=== PATIENT | female | born 1945 | race Two or more races ===

== ENCOUNTER 2025-05-01 18:35 | Emergency (ER) | payer OTHER, MEDICAID, SELFPAY ==
[2025-05-01 19:27] VITALS: BP 104/63; PULSE 101; RESP 20; TEMP 37.4; O2SAT 96
--- NOTE | 2025-05-01 19:32 | XR_ITS ---
Examination: CT abdomen and pelvis without contrast. Coronal 3-D reconstructions. Sagittal 2-D reconstructions. Date and time of exam: May 01, 2025, 2033 hours INDICATIONS: Bilateral pelvic and flank pain beginning 4 days ago CTDI: vol (mGy): 6.52 DLP: (mGycm): 357 Technique: Axial images of the abdomen have been obtained, 3 mm slice thickness Intravenous contrast material has not been administered. Low dose protocols were performed. One or more of the following dose reduction techniques were used; automated exposure control, adjustment of the mA and/or KV according to patient size, use of iterative reconstruction technique. 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
--- NOTE | 2025-05-01 19:33 | PD.EDRME ---
Rapid Medical Screening Exam RME Arrival date/time: 05/01/25 18:35 This is a case of 79-year-old female with history of hyperlipidemia hypertension diabetes came in in the emergency room due to bilateral flank pain radiating to the abdomen with painful urination for 4 days with nausea vomiting persistence of the symptoms this patient decided to sought consult here in the emergency room Chief Complaint: Urogenital-Female Time Seen by Provider: 05/01/25 18:55 Vital signs: Vital Signs Temperature 99.4 F 05/01/25 19:27 Pulse Rate 101 H 05/01/25 19:27 Respiratory Rate 20 05/01/25 19:27 Blood Pressure 104/63 05/01/25 19:27 Pulse Oximetry (%) 96 05/01/25 19:27 Oxygen Delivery Method Room Air 05/01/25 19:27 Exam: Moderate tenderness both flank and abdomen no guarding no rebound no rigidity Clinical Impression: Bilateral flank pain dysuria
[2025-05-01 20:03] LABS: Collection Type, Urine Clean Catch
[2025-05-01 20:15] LABS: Bacteria,Urine Rare; Bilirubin,Urine Negative (Negative); Blood,Urine 2+ (Negative); Clarity,Urine Turbid (Clear/Hazy); Color,Urine Yellow (Lt Yel-Yel); Glucose, Urine Negative (Negative); Hyaline Casts,Urine < 1 /hpf (0-1); Ketones,Urine Negative (Negative); Leukocyte Esterase,Urine Positive (Negative); Nitrite,Urine Negative (Negative); PH,Urine 6.0 (5.0-7.0); Protein,Urine 1+ (Neg - Trace); RBC,Urine 14 /hpf (0-3); Specific Gravity,Urine 1.021 (1.001-1.035); Squamous Epithelial Cell,Urine 11 /hpf (0-5); Urobilinogen,Urine Negative mg/dL (0.0-1.0); WBC,Urine 7 /hpf (0-5)
[2025-05-01 21:07] LABS: Basophils # (Auto) 0.1 Thou/mm3 (0.0-0.2); Basophils % (Auto) 0 % (0-2.5); Eosinophils # (Auto) 0.1 Thou/mm3 (0.0-0.5); Eosinophils % (Auto) 1 % (0-10); Hematocrit 37.7 % (36.0-46.0); Hemoglobin 12.7 g/dL (12.0-16.0); Immature Granulocytes Auto 0.10 Thou/mm3 (0.00-0.00); Lymphocytes # (Auto) 2.8 Thou/mm3 (1.0-4.8); Lymphocytes % (Auto) 20 % (10-50); Mean Corpuscular HGB Conc 33.7 g/dl (31.0-37.0); Mean Corpuscular Hemoglobin 31.2 pg (25.0-35.0); Mean Corpuscular Volume 93 fL (80-100); Monocytes # (Auto) 0.9 Thou/mm3 (0.0-0.8); Monocytes % (Auto) 6 % (0-12); Neutrophils # (Auto) 10.1 Thou/mm3 (1.8-7.7); Neutrophils % (Auto) 71 % (37-80); Nucleated Red Blood Cell # 0.00 Thou/mm3 (0.00-0.00); Nucleated Red Blood Cell % 0 /100 WBC (0); Platelet Count 240 Thou/mm3 (140-440); RDW Standard Deviation 48.4 fL (36.4-46.3); Red Blood Count 4.07 Miln/mm3 (4.00-5.20); White Blood Count 14.1 Thou/mm3 (3.6-11.0)
[2025-05-01 21:28] LABS: Alanine Aminotransferase 26 U/L (10-49); Albumin, Serum 4.5 gm/dL (3.4-4.8); Albumin/Globulin Ratio 1.4 (1.2-2.2); Alkaline Phosphatase 89 U/L (46-116); Anion Gap 13 (7-16); Aspartate Amino Transferase 21 U/L (0-34); BUN/Creatinine Ratio 19 Ratio (12-20); Bilirubin,Total 0.6 mg/dL (0.3-1.2); Blood Urea Nitrogen 29 mg/dL (9-23); Calcium 9.8 mg/dL (8.3-10.6); Calcium (Corrected) 9.8 mg/dL (8.5-10.1); Carbon Dioxide 18.4 mMol/L (20.0-31.0); Chloride 107 mMol/L (98-107); Creatinine (Component) 1.5 mg/dL (0.6-1.3); Globulin 3.2 gm/dL (2.3-3.5); Glucose 178 mg/dL (74-106); Lipase 80 U/L (12-53); Osmolality,Calculated 285 (275-295); Potassium 5.8 mMol/L (3.4-5.1); Sodium 138 mMol/L (136-145); Total Protein 7.7 gm/dL (5.7-8.2); eGFR 35 See Note
--- NOTE | 2025-05-01 22:05 | EDNOTE_ITS ---
ED Female Urogenital RME/HPI General Chief complaint: Urogenital-Female Stated complaint: Painful urination X 4 days Time Seen by Provider: 05/01/25 18:55 Arrival date/time: 05/01/25 18:35 79-year-old female patient with significant history of hypertension, diabetes mellitus, came in for evaluation regarding dysuria for 4 days. Onset of symptoms gradual. Severity of symptoms moderate. Denies any vomiting denies any fever denies any other complaints no medication was taken prior to ER visit. RME / HPI RME / HPI Narrative: 05/01/25 18:35 This is a case of 79-year-old female with history of hyperlipidemia hypertension diabetes came in in the emergency room due to bilateral flank pain radiating to the abdomen with painful urination for 4 days with nausea vomiting persistence of the symptoms this patient decided to sought consult here in the emergency room Exam: Moderate tenderness both flank and abdomen no guarding no rebound no rigidity Impression: Bilateral flank pain dysuria Related Data Home Medications ?Medication ?Instructions ?Recorded ?Confirmed Metformin Hcl 500 mg PO BID Diabetes ##60 07/08/13 ferrous sulfate 325 mg (65 mg 325 mg PO TID SUPPLEMENT #0 tabs 07/08/13 iron) tablet,delayed release atorvastatin 10 mg tablet (Lipitor) 10 mg PO HS High C holesterol #0 01/13/15 tabs hydrochlorothiazide 25 mg tablet 25 mg PO QAM Diuretic #0 tabs 01/13/15 lisinopril 40 mg tablet 40 mg PO QDAY High Blood Pre ssure 01/13/15 #0 tabs verapamil 120 mg tablet (Calan) 120 mg PO QDAY High Bl ood Pressure 01/13/15 #0 tabs Previous Rx's ?Medication ?Instructions ?Recorded cephalexin 500 mg capsule 500 mg PO TID 7 days #21 cap s 05/01/25 Allergies Allergy/AdvReac Type Severity Reaction Status Date / Time NKA* Allergy Uncoded 05/01/25 18:41 Review of Systems Review of Systems Narrative Review of Systems: Review of system reviewed and within normal limits except mentioned in HPI ED Exam Narrative Physical exam: VITAL SIGNS: Reviewed. GENERAL APPEARANCE: Alert and interactive, follows commands, no acute distress, HEAD AND FACE: Non-traumatic. ENT: PERRL, pink conjunctivitis, eyelid no trauma, Mucous membrane moist. NECK: Supple, nontender, no nuchal rigidity. CHEST: No tenderness, no crepitus, no paradoxical movement, no retractions. LUNGS: Clear, well ventilated, symmetric, no rales, no wheezing, no ronchi, no stridor, good breath sounds bilaterally. HEART: Regular rate, regular rhythm, no murmur, no gallops. ABDOMEN: Soft, positive bowel sounds, nondistended, no guarding, nontender, no rebound, no masses, RECTAL: Deferred. GENITAL: Deferred. NEUROLOGICAL: Gross motor function intact sensory function intact, Appropriate for age. MUSCULOSKELETAL: low back nontender, full range of motion. EXTREMITIES: Nontender, full range of motion. SKIN: Color pink, dry, no rash, no lacerations, no abrasions, no contusions. LYMPHATICS: Deferred. Course Quality Measures none Orders Category Date Time Status EKG (ED ONLY) *Do not use* NOW Care 05/01/25 22:[address] abdomen pelvis wo con Stat Exams 05/01/25 19:32 Completed EKG (ED Only) Stat Exams 05/01/25 22:07 Ordered BMP [Basic Metabolic Panel] Stat Lab 05/01/25 23:22 Completed CBC Stat Lab 05/01/25 20:44 Completed Comprehensive Metabolic Panel Stat Lab 05/01/25 20:44 Completed Lipase Stat Lab 05/01/25 20:44 Completed Urinalysis Stat Lab 05/01/25 19:57 Completed ALBUTEROL RT 0.5ml [Proventil Rt 0.5ml] Med 05/01/25 21:50 Discontinued 5 mg INH X1 ONE Dextrose 50% Syr [D50w Syringe Abboject] Med 05/01/25 22:08 Discontinued 50 ml IVP X1 ONE Insulin Regular Med 05/01/25 22:08 Discontinued 5 unit IV X1 ONE Sod Polystyrene Sulfon Susp [Kayexalate Susp] Med 05/01/25 21:50 Discontinued 30 gm PO X1 ONE Sodium Chloride 0.9% 1000 ml [Ns] 1,000 ml Med 05/01/25 21:51 Discontinued IV 999 mls/hr Sodium Chloride Rt Claire 0.9% [NS Rt Claire 0.9%] Med 05/01/25 21:50 Discontinued 3 ml INH PRN PRN cefTRIAXone [Rocephin] 1,000 mg Med 05/01/25 23:04 Discontinued Lidocaine 1% Pf Vial 5ml [Xylocaine 1% Pf 5 ml] 2.1 ml IM X1 cefTRIAXone/D5w 1gm IV premix [Rocephin/D5w 1gm IV Med 05/01/25 21:51 Discontinued premix] 1 gm in 50 ml IV X1 Vital Signs Vital signs: Vital Signs Temperature 99.4 F 05/01/25 19:27 Pulse Rate 101 H 05/01/25 19:27 Respiratory Rate 20 05/01/25 19:27 Blood Pressure 104/63 05/01/25 19:27 Pulse Oximetry (%) 96 05/01/25 19:27 Oxygen Delivery Method Room Air 05/01/25 19:27 Urogenital - Female MDM Narrative MDM Narrative:: 79-year-old female patient with significant history of hypertension, diabetes mellitus, came in for evaluation regarding dysuria for 4 days. Onset of symptoms gradual. Severity of symptoms moderate. Denies any vomiting denies any fever denies any other complaints no medication was taken prior to ER visit. Patient potassium was noted to be 5.8, carbon dioxide of 18.4 BUN of 29, creatinine 1.5 glucose 178 urinalysis positive for UTI. EKG showed normal sinus rhythm, ventricular rate of 86 bpm, no ST segment ovation depression noted. CT scan of the abdomen pelvis showed Cholelithiasis, negative for cholecystitis Moderate renal scar formation No renal or ureteral calculi, no hydronephrosis Normal appendix No bladder mass or bladder calculi Case discussed with Dr. Jeffrey, who told me to repeat the BMP, and no treatment for elevated creatinine 1.5 and potassium of 5.6. Patient will be discharged home antibiotic for UTI Patient data External records reviewed:: None Clinical information provided by:: patient Social determinants that could affect healthcare access:: none Patient has the following chronic illnesses:: Hypertension How is presenting disease/condition affected by chronic disease/condition?: exacerbated by Evaluation data The following diagnostics were reviewed and interpreted by me:: lab results and radiology exam(s) Lab and/or radiology exams considered but not ordered:: None Interpretation Summary: See above Medications / Prescriptions Medications or Prescriptions considered but not ordered:: None Medication administrations:: Medication Administration History Discontinued Medications Albuterol (Albuterol Rt 2.5 Mg/0.5 Ml Nebu) 5 mg INH X1 ONE Stop: 05/01/25 21:51 Last Admin: 05/01/25 22:37 Dose: 5 mg Documented By: GALILEA Ceftriaxone Sodium 1,000 mg/ (Lidocaine HCl 2.1 ml) 0 mg IM X1 ONE Stop: 05/01/25 23:05 Last Admin: 05/01/25 23:34 Dose: 1,000 mg Documented By: WILLIAM Dextrose (Dextrose 50%-Water Inj 50 Ml Syringe) 50 ml IVP X1 ONE Stop: 05/01/25 22:09 Last Admin: 05/01/25 23:06 Dose: Not Given Documented By: STARR Non-Admin Reason: Discontinued Sodium Chloride (Ns) 1,000 mls @ 999 mls/hr IV .Q1H1M ONE Stop: 05/01/25 22:51 Last Admin: 05/01/25 23:06 Dose: Not Given Documented By: STARR Non-Admin Reason: Discontinued Ceftriaxone Sodium/Dextrose (Rocephin/D5w 1gm Iv Premix) 1 gm in 50 mls @ 100 mls/hr IV X1 ONE Stop: 05/01/25 22:20 Last Admin: 05/01/25 23:06 Dose: Not Given Documented By: STARR Non-Admin Reason: Discontinued Insulin Human Regular (Insulin Hum Regular 1 Unit/0.01 Ml (Per Unit)) 5 unit IV X1 ONE Stop: 05/01/25 22:09 Last Admin: 05/01/25 23:06 Dose: Not Given Documented By: STARR Non-Admin Reason: Discontinued Sodium Chloride (Sodium Chloride Rt Claire 0.9% 3 Ml Nebu) 3 ml INH PRN PRN PRN Reason: SOLN Stop: 05/31/25 21:49 Last Admin: 05/01/25 22:38 Dose: 3 ml Documented By: GALILEA Sodium Polystyrene Sulfonate (Sod Polystyrene Sulfon Susp 15 Gm/60 Ml Btl) 30 gm PO X1 ONE Stop: 05/01/25 21:51 Last Admin: 05/01/25 23:06 Dose: Not Given Documented By: STARR Non-Admin Reason: Discontinued Stable Consultations Consultation(s) initiated? (list below): No Diagnosis Urogenital Female Differential Diagnosis: urinary tract infection and other (Hyperkalemia, LAVELLE) Most likely diagnosis given after review of the tests above:: UTI Admission Indicated Admission indicated?: not indicated Admission Request Was there a request for admission?: No Disposition Plan Disposition Plan: Discharge Discharge Attestation Discharge Attestation: The patient and all family members were given an opportunity to ask questions and understood the discharge instructions. Discharge instructions specifically effects, indications for sooner follow up or return to the emergency department, and the expected course of current diagnosis. Patient condition: Stable Discharge Plan Plan Patient Disposition: HOME (Self Care) Discharge Disposition comment: Stable Prescriptions/Referrals Prescriptions/Med Rec: New cephalexin 500 mg capsule 500 mg PO TID 7 Days Qty: 21 0RF No Action Metformin Hcl 500 MG tablet 500 mg PO BID Qty: 60 ferrous sulfate 325 MG tablet 325 mg PO TID Qty: 0 atorvastatin [Lipitor] 10 MG tablet 10 mg PO HS Qty: 0 verapamil [Calan] 120 MG tablet 120 mg PO QDAY Qty: 0 lisinopril 40 MG tablet 40 mg PO QDAY Qty: 0 hydrochlorothiazide 25 MG tablet 25 mg PO QAM Qty: 0 Referrals: Lemuel Hill PA-C [Primary Care Provider] - In 1 week Problem List Clinical Impression: Urinary tract infection Patient/Caregiver Discharge Instructions Discharge Activity: activity as tolerated Education Materials: Urinary Tract Infections in Women Additional Instructions: Thank you for the opportunity for serving you today. You are stable for discharged . You are advised to: Follow-up with your PCP in 1 to 2 days Return to ED for worsening of symptoms Increase oral fluids Take medication as prescribed Print Language: Turkish Stand Alone Forms: Tanya Award Info., Patient Portal Info Letter FLO/IMAN Supervising Physician DIXON Supervising Physician: MD Wojciech
[2025-05-01 22:32] VITALS: BP 133/92; PULSE 92; RESP 19; TEMP 36.6; O2SAT 97
[2025-05-01 22:37] VITALS: PULSE 90
[2025-05-01] MEDS: ALBUTEROL RT 2.5 MG/0.5 ML NEBU 5 MG INH (22:37)
[2025-05-01] MEDS: SODIUM CHLORIDE RT SOL 0.9% 3 ML NEBU INH (22:38)
[2025-05-01 22:41] VITALS: PULSE 88; RESP 20; O2SAT 100
[2025-05-01 23:42] LABS: Anion Gap 10 (7-16); BUN/Creatinine Ratio 19 Ratio (12-20); Blood Urea Nitrogen 31 mg/dL (9-23); Calcium 9.7 mg/dL (8.3-10.6); Carbon Dioxide 20.6 mMol/L (20.0-31.0); Chloride 108 mMol/L (98-107); Creatinine (Component) 1.6 mg/dL (0.6-1.3); Glucose 174 mg/dL (74-106); Osmolality,Calculated 288 (275-295); Potassium 5.6 mMol/L (3.4-5.1); Sodium 139 mMol/L (136-145); eGFR 32 See Note
[2025-05-01 23:52] VITALS: BP 133/92; PULSE 99; RESP 20; TEMP 36.9; O2SAT 97
== END 2025-05-02 | disposition home or self-care (01) ==
PROVIDERS: Nurse Practitioner Family; Emergency Provider Emergency Medicine; PCP Physician Assistant
DX: N39.0 Urinary tract infection, site not specified (principal); K80.20 Calculus of gallbladder without cholecystitis without obstruction; N28.89 Other specified disorders of kidney and ureter; R94.31 Abnormal electrocardiogram [ECG] [EKG]; I10 Essential (primary) hypertension
CPT/HCPCS: 36415; 74176; 80048; 80053; 81001; 83690; 85025; 93005; 94640; 96372; 99284; J0696; J3490; J7611